=== PATIENT | female | born 1950 | race African-American/Black ===

== ENCOUNTER 2017-10-17 08:47 | Inpatient (IN) | payer MEDICARE, OTHER ==
[~2017-10-17] VITALS: Ht 165.1 cm; Wt 93.0 kg
[2017-10-17] MEDS ORDERED: MORPHINE SULFATE 4 MG/ML CPJ (NOT FOR IM USE) IV STA (10:16)
[2017-10-17] MEDS ORDERED: NITROGLYCERIN OINT 1GM/INCH UDPKT TD STA (10:16)
[2017-10-17] MEDS ORDERED: ONDANSETRON HCL 4MG/2ML VIAL IV STA (10:16)
[2017-10-17] MEDS ORDERED: ASPIRIN 81MG TABLET PO STA (10:16)
[2017-10-17 10:52] LABS: BASOPHILS % 0.4 % (0.0-2.0); HEMATOCRIT. 37.8 % (36.0-48.0); HEMOGLOBIN. 12.6 g/dL (12.0-16.0); LYMPHOCYTES % 26.9 % (20.0-50.0); MEAN CORPUSCULAR VOLUME 84.3 fL (81.0-99.0); MEAN PLATELET VOLUME 8.6 fl (7.4-10.4); MONOCYTES % 8.8 % (2.0-8.0); NEUTROPHILS % 62.9 % (40.0-76.0); PLATELET 229 x1000/uL (130-400); RED BLOOD CELL COUNT 4.49 mill/uL (4.2-5.4); RED CELL DISTRIBUTION WIDTH 16.6 % (11.6-14.6)
[2017-10-17 10:58] LABS: CHLORIDE 106 mEq/L (98-107)
[2017-10-17 11:02] LABS: INR 1.1; PARTIAL THROMBOPLASTIN TIME 26.1 sec (23.4-31.0); PROTHROMBIN TIME 11.2 sec (9.4-11.6)
[2017-10-17 11:06] LABS: CREATINE KINASE 44 IU/L (26-192)
[2017-10-17 11:09] LABS: CREATINE KINASE MB FRACTION 0.5 ng/mL (0.5-3.6)
[2017-10-17] MEDS ORDERED: POTASSIUM CHLORIDE 20MEQ TABLET SR PO ONE (11:15)
[2017-10-17 11:40] VITALS: BP 137/83
[2017-10-17] MEDS ORDERED: CARI350T MT (12:21)
[2017-10-17] MEDS ORDERED: OMEP20CA10 MT (12:23)
[2017-10-17] MEDS ORDERED: AMLO10TA80 MT (12:23)
[2017-10-17] MEDS ORDERED: TEMA15CA MT (12:23)
[2017-10-17] MEDS ORDERED: METO-411 MT (12:23)
[2017-10-17] MEDS ORDERED: IPRATROPIUM/ALBUTEROL 0.5-3(2.5)MG/3ML NEB INH PRN (13:00)
[2017-10-17] MEDS ORDERED: DOCUSATE SODIUM 100MG CAPSULE PO PRN (13:00)
[2017-10-17] MEDS ORDERED: ONDANSETRON HCL 4MG/2ML VIAL IV PRN (13:00)
[2017-10-17] MEDS ORDERED: GUAIFENESIN 200MG/10ML SUGAR FREE UDC PO PRN (13:00)
[2017-10-17] MEDS ORDERED: HYDROCODONE/ACETAMINOPHEN 5/325MG TABLET PO PRN (13:00)
[2017-10-17] MEDS ORDERED: MORPHINE SULFATE 4 MG/ML CPJ (NOT FOR IM USE) IV PRN (13:00)
[2017-10-17] MEDS ORDERED: CLONIDINE 0.1MG TABLET PO PRN (13:00)
[2017-10-17] MEDS ORDERED: ACETAMINOPHEN 325MG TABLET PO PRN (13:00)
[2017-10-17] MEDS: ENOXAPARIN 30MG/0.3ML SYR SUBCUT SCH (15:47)
[2017-10-17 16:45] LABS: CREATINE KINASE 38 IU/L (26-192)
[2017-10-17 16:46] LABS: CREATINE KINASE MB FRACTION < 0.5 ng/mL (0.5-3.6)
[2017-10-17 20:00] VITALS: BP 124/73
[2017-10-17 22:46] LABS: *AMPHETAMINES SCREEN URINE NEGATIVE (NEGATIVE); *BARBITURATES SCREEN URINE NEGATIVE (NEGATIVE); *BENZODIAZEPINES SCREEN URINE NEGATIVE (NEGATIVE); *COCAINE SCREEN URINE PRESUMTIVE POSITIVE (NEGATIVE)
[2017-10-17 22:48] LABS: CANNABINOID URINE SCREEN NEGATIVE (NEGATIVE); METHADONE URINE SCREEN NEGATIVE (NEGATIVE); OPIATES URINE SCREEN PRESUMTIVE POSITIVE (NEGATIVE); PHENCYCLIDINE URINE SCREEN NEGATIVE (NEGATIVE)
[2017-10-17 23:39] LABS: CREATINE KINASE 32 IU/L (26-192); CREATINE KINASE MB FRACTION < 0.5 ng/mL (0.5-3.6)
[2017-10-18] VITALS: BP 132/69
[2017-10-18 04:00] VITALS: BP 141/69
[2017-10-18] MEDS: ENOXAPARIN 30MG/0.3ML SYR SUBCUT SCH (06:19)
[2017-10-18 07:50] VITALS: BP 154/81
[2017-10-18 08:32] LABS: CHLORIDE 106 mEq/L (98-107)
[2017-10-18 08:45] LABS: LDL CHOLESTEROL 74 mg/dL (5-100)
[2017-10-18 08:47] LABS: HDL CHOLESTEROL 51 mg/dL (40-59)
[2017-10-18] MEDS ORDERED: AMLODIPINE 10MG TABLET PO SCH (09:00)
[2017-10-18] MEDS ORDERED: ASPIRIN 81MG EC TABLET PO SCH (09:00)
[2017-10-18 09:03] LABS: BASOPHILS % 0.8 % (0.0-2.0); EOSINOPHILS % 1.9 % (0.0-5.0); HEMATOCRIT. 36.9 % (36.0-48.0); LYMPHOCYTES % 43.7 % (20.0-50.0); MEAN CORPUSCULAR HEMOGLOBIN 27.9 pg (28.0-32.0); MEAN CORPUSCULAR VOLUME 85.8 fL (81.0-99.0); MEAN PLATELET VOLUME 9.6 fl (7.4-10.4); MONOCYTES % 14.9 % (2.0-8.0); NEUTROPHILS % 38.7 % (40.0-76.0); PLATELET 183 x1000/uL (130-400); RED CELL DISTRIBUTION WIDTH 16.6 % (11.6-14.6)
[2017-10-18 11:51] VITALS: BP 112/73
[2017-10-18 14:28] VITALS: BP 112/73
== END 2017-10-18 15:10 | disposition home health service (06) | DRG 198 ==
LOC: ER 09:52 → ENRESERV 10:32 → 5WST 10:48 → EDBEDREQTM 10:50 → EDBEDREQ 10:50
PROVIDERS: ADMIT Hospitalist; ATTEND Hospitalist
DX: R07.89 Other chest pain (principal); I24.9 Acute ischemic heart disease, unspecified; I11.9 Hypertensive heart disease without heart failure; E87.6 Hypokalemia; F14.10 Cocaine abuse, uncomplicated; F17.200 Nicotine dependence, unspecified, uncomplicated; K21.9 Gastro-esophageal reflux disease without esophagitis; F41.9 Anxiety disorder, unspecified; Z88.8 Allergy status to other drugs, medicaments and biological substances; Z82.49 Family history of ischemic heart disease and other diseases of the circulatory system; Z79.899 Other long term (current) drug therapy
CPT/HCPCS: 36415; 71045; 80048; 80053; 80061; 80305; 82550; 82553; 83690; 83735; 83880; 84443; 84484; 85025; 85610; 85730; 93005; 93970; 99291; J1650; J2270; J2405

== ENCOUNTER 2018-09-13 21:56 | Emergency (ER) | payer MEDICARE, OTHER ==
[~2018-09-13] VITALS: Ht 167.6 cm; Wt 87.0 kg
[~2018-09-13 21:56] MED LIST: AMLO10TA80 MT; METO-411 MT; OMEP20CA10 MT; S350 MT; TEMA15CA MT
[2018-09-13] MEDS ORDERED: KETOROLAC 30MG/ML VIAL IV STA (23:57)
[2018-09-14 00:35] LABS: BASOPHILS % 0.8 % (0.0-2.0); HEMATOCRIT. 35.8 % (36.0-48.0); HEMOGLOBIN. 12.1 g/dL (12.0-16.0); LYMPHOCYTES % 36.6 % (20.0-50.0); MEAN CORPUSCULAR HEMOGLOBIN 28.4 pg (28.0-32.0); MEAN CORPUSCULAR VOLUME 84.3 fL (81.0-99.0); MEAN PLATELET VOLUME 9.2 fl (7.4-10.4); MONOCYTES % 11.7 % (2.0-8.0); NEUTROPHILS % 48.9 % (40.0-76.0); PLATELET 183 x1000/uL (130-400); RED BLOOD CELL COUNT 4.25 mill/uL (4.2-5.4); RED CELL DISTRIBUTION WIDTH 16.4 % (11.6-14.6)
[2018-09-14 00:39] LABS: CHLORIDE 109 mEq/L (98-107)
[2018-09-14 04:32] VITALS: BP 110/61
== END 2018-09-14 04:55 | disposition home or self-care (01) ==
LOC: ER 23:38 → CANBEDREQ 09-14 05:43
DX: M79.605 Pain in left leg (principal); M79.604 Pain in right leg; R60.0 Localized edema; R07.9 Chest pain, unspecified; I10 Essential (primary) hypertension; F17.200 Nicotine dependence, unspecified, uncomplicated; Z79.899 Other long term (current) drug therapy; Z88.8 Allergy status to other drugs, medicaments and biological substances
CPT/HCPCS: 36415; 71045; 80053; 83880; 84484; 85025; 93005; 96374; 99284; J1885

== ENCOUNTER 2019-04-08 14:07 | Emergency (ER) | payer MEDICARE, OTHER ==
[~2019-04-08] VITALS: Ht 167.6 cm; Wt 81.0 kg
[~2019-04-08 14:07] MED LIST changes: +CARI-166 MT; -OMEP20CA10 MT; +OMEP20CA5 MT; -S350 MT
[2019-04-08] MEDS ORDERED: ACETAMINOPHEN 325MG TABLET PO ONE (15:00)
[2019-04-08 20:20] VITALS: BP 171/90
== END 2019-04-08 21:42 | disposition home or self-care (01) ==
LOC: ER 14:07
DX: S82.144A Nondisplaced bicondylar fracture of right tibia, initial encounter for closed fracture (principal); I10 Essential (primary) hypertension; M19.90 Unspecified osteoarthritis, unspecified site; I25.10 Atherosclerotic heart disease of native coronary artery without angina pectoris; Z88.0 Allergy status to penicillin; Z88.8 Allergy status to other drugs, medicaments and biological substances; W01.0XXA Fall on same level from slipping, tripping and stumbling without subsequent striking against object, initial encounter; Y93.89 Activity, other specified; Y92.018 Other place in single-family (private) house as the place of occurrence of the external cause
CPT/HCPCS: 29505; 71045; 73590; 73610; 73630; 99283

== ENCOUNTER 2022-12-12 16:58 | Emergency (ER) | payer MEDICARE, OTHER ==
[~2022-12-12] VITALS: Ht 167.6 cm; Wt 87.0 kg
[~2022-12-12 16:58] MED LIST changes: -CARI-166 MT; +CARI350T28 MT; +OMEP20CA14 MT; -OMEP20CA5 MT
[2022-12-12 17:02] VITALS: BP 119/70; PULSE 67; RESP 16; O2SAT 99
[2022-12-12 17:15] VITALS: TEMP 97.8
[2022-12-12] MEDS ORDERED: ACETAMINOPHEN 325MG TABLET PO ONE (17:15)
== END 2022-12-13 02:43 | disposition home or self-care (01) ==
LOC: ER 16:58
DX: M54.2 Cervicalgia (principal); I10 Essential (primary) hypertension; Z79.899 Other long term (current) drug therapy
CPT/HCPCS: 99283

== ENCOUNTER 2022-12-13 07:39 | Emergency (ER) | payer MEDICARE, OTHER ==
[~2022-12-13] VITALS: Ht 157.5 cm; Wt 68.2 kg
[2022-12-13 07:50] VITALS: O2SAT 98
[2022-12-13] MEDS: KETOROLAC 60MG/2ML VIAL IM ONE (09:15)
[2022-12-13 10:54] VITALS: BP 134/76; PULSE 59; RESP 18; TEMP 98.5
== END 2022-12-13 10:54 | disposition home or self-care (01) ==
LOC: ER 07:39
DX: M54.2 Cervicalgia (principal); I11.0 Hypertensive heart disease with heart failure; I50.9 Heart failure, unspecified; Z88.0 Allergy status to penicillin
CPT/HCPCS: 99283; 96372; J1885